=== PATIENT | male | born 1950 | race Caucasian/White ===

== ENCOUNTER 2019-07-03 16:35 | Emergency (ER) | payer MEDICARE, OTHER ==
[2019-07-03] MEDS ORDERED: Ketorolac 30 MG/ML SDV IM ONE (16:59)
[2019-07-03 17:01] VITALS: BP 130/99; PULSE 100
--- NOTE | 2019-07-03 17:10 | EDM.PDOC ---
ED HPI GENERAL MEDICAL PROBLEM - General Chief Complaint: General Stated Complaint: rib pain post fall Time Seen by Provider: 07/03/19 16:45 Source of Information: Reports: Patient History Limitations: Reports: No Limitations - History of Present Illness INITIAL COMMENTS - FREE TEXT/NARRATIVE: Patient comes into the emergency department with complaints of left rib discomfort post fall. Patient was diagnosed with a rib fracture in the clinic 2 days ago and was given Tylenol# 3 for pain and discomfort. Patient did try to call the clinic today to let them know that he was still having a significant amount of pain and discomfort and severe muscle spasms. They did not get back to him in a timely manner. He did call right before the clinic closed and they suggested that he report emergency Department further evaluation. Patient denies feeling short of breath or having any chest pain. He states that the muscle spasms/pain come and go and is significant, tender over the left lower portion of his anterior chest, and reproducible. Associated hurts when he takes a deep breath. He states his rib fractures were related to a fall while he was walking his dog on -his dog pulled on the leash and he slipped on the ice at the same time resulting in the fall on the left side. He denies ever hitting his head or hurting any other limb or extremity. Onset: Gradual Duration: Recurring Location: Reports: Chest Quality: Reports: Throbbing Severity: Moderate Improves with: Reports: Immobilization, Rest Worsens with: Reports: Movement Context: Reports: Activity Associated Symptoms: Reports: No Other Symptoms Treatments INSTRUCTOR TAP DANCING: Reports: Acetaminophen Left Thoracic Pain Score (Numeric/FACES): 10 - Related Data Allergies Allergy/AdvReac Type Severity Reaction Status Date / Time No Known Drug Allergies Allergy Other Verified 07/03/19 16:51 smoke Allergy Other Uncoded 07/03/19 16:51 Home Meds: Home Meds Allopurinol [Zyloprim] 150 mg PO DAILY 02/16/16 [History] Acetaminophen with Codeine [Acetaminophen-Cod #3] 2 each PO Q6H 07/03/19 [ History] Diazepam [Valium] 2 mg PO QID PRN #15 tablet 07/03/19 [Rx] Past Medical History HEENT History: Reports: Cataract, Other (See Below) Other HEENT History: FX NOSE Cardiovascular History: Reports: Hypertension Other Cardiovascular History: Does not take BP medicine at this time. Gastrointestinal History: Reports: Colon Polyp, Hemorrhoids, Other (See Below) Other Gastrointestinal History: fm hx colon ca Genitourinary History: Reports: Chronic Renal Insuffiency, Other (See Below) Other Genitourinary History: ED Musculoskeletal History: Reports: Arthritis, Back Pain, Chronic, Gout, Osteoarthritis Neurological History: Reports: Migraines Psychiatric History: Reports: Depression Endocrine/Metabolic History: Reports: None Hematologic History: Immunologic History: Reports: None Oncologic (Cancer) History: Reports: None Dermatologic History: Reports: None - Infectious Disease History Infectious Disease History: Reports: None - Past Surgical History HEENT Surgical History: Reports: Cataract Surgery Neurological Surgical History: Reports: Laminectomy, Lumbar Spine Musculoskeletal Surgical History: Reports: Carpal Tunnel, Hip Replacement, Knee Replacement, Other (See Below) Social & Family History - Family History Neurological: Reports: CVA ED ROS GENERAL - Review of Systems Review Of Systems: Comprehensive ROS is negative, except as noted in HPI. Constitutional: Reports: No Symptoms HEENT: Reports: No Symptoms Respiratory: Reports: No Symptoms Cardiovascular: Reports: No Symptoms Endocrine: Reports: No Symptoms GI/Abdominal: Reports: No Symptoms : Reports: No Symptoms Musculoskeletal: Reports: No Symptoms Skin: Reports: No Symptoms Neurological: Reports: No Symptoms ED EXAM, GENERAL - Physical Exam Exam: See Below Exam Limited By: No Limitations General Appearance: Alert, WD/WN, No Apparent Distress Head: Atraumatic, Normocephalic Neck: Normal Inspection, Supple, Non-Tender, Full Range of Motion Respiratory/Chest: No Respiratory Distress, Lungs Clear, Normal Breath Sounds, No Accessory Muscle Use, Chest Non-Tender Cardiovascular: Normal Peripheral Pulses, Regular Rate, Rhythm, No Edema, No Gallop, No JVD, No Murmur, No Rub, Other (chest tenderness, stiffening of muscle ) GI/Abdominal: Normal Bowel Sounds, Soft, Non-Tender Back Exam: Normal Inspection, Full Range of Motion, NT Extremities: Normal Inspection, Normal Range of Motion, Non-Tender, Normal Capillary Refill, No Pedal Edema Neurological: Alert, Oriented, CN II-XII Intact, Normal Cognition, Normal Gait, No Motor/Sensory Deficits Psychiatric: Normal Affect, Normal Mood Skin Exam: Warm, Dry, Intact, Normal Color, No Rash Course - Vital Signs Last Recorded V/S: Last Vital Signs Temp 36.8 C 07/03/19 16:55 Pulse 100 07/03/19 16:55 Resp 16 07/03/19 16:55 BP 130/99 H 07/03/19 16:55 Pulse Ox - Orders/Labs/Meds Meds: Medications Discontinued Medications Generic Name Dose Route Start Last Admin Trade Name Jasonq PRN Reason Stop Dose Admin Diazepam 5 mg 07/03/19 16:59 Valium IM 07/03/19 17:00 ONETIME ONE Ketorolac Tromethamine 30 mg 07/03/19 16:59 Toradol IM 07/03/19 17:00 ONETIME ONE Departure - Departure Time of Disposition: 17:25 Disposition: Home, Self-Care 01 Condition: Good Clinical Impression: Rib fracture Qualifiers: Encounter type: subsequent encounter Rib fracture type: single rib Fracture type: closed Laterality: left Fracture healing: with routine healing Qualified Code(s): S22.32XD - Fracture of one rib, left side, subsequent encounter for fracture with routine healing - Discharge Information *PRESCRIPTION DRUG MONITORING PROGRAM REVIEWED*: Not Applicable *COPY OF PRESCRIPTION DRUG MONITORING REPORT IN PATIENT ASHLEY: Not Applicable Prescriptions: Diazepam [Valium] 2 mg PO QID PRN #15 tablet PRN Reason: Spasms Instructions: Rib Fracture, Gqzl-rw-[id number], Diazepam tablets, RICE for Routine Care of Injuries, Muscle Cramps and Spasms, Nrel-nw-Wlrr Additional Instructions: 1. rest 2. increase your water intake 3. Can take over the counter medications to help with constipation concerns 4. Do not drive or operate any heavy machinery while under the use of controlled substances including Valium and the Tylenol #3 (that you were provided from the clinic) for it can alter your response and mentation 5. Activity and diet as tolerated 6. Splint the affected area when coughing or needing to take a deep breath to help reduce the pain and discomfort 7. Can take wzys-doe-rvryqqu ibuprofen or Tylenol as needed help with pain and discomfort. Limit the amount of over the counter Tylenol take if you are taking the Tylenol #3. 8. Follow-up in the clinic if not better early next week or return to the emergency department if symptoms worsen or progress 9. Call with any questions or concerns Sepsis Event Note - Evaluation Sepsis Screening Result: No Definite Risk - Focused Exam Vital Signs: Vital Signs Temp Pulse Resp BP 07/03/19 16:55 36.8 C 100 16 130/99 H Date Exam was Performed: 07/03/19 Time Exam was Performed: 17:03 - Assessment/Plan Assessment:: 1. muscle spasm 2. Rib fracture Plan: 1. Valium 5 mg IM given for severe muscle spasm 2. Toradol 30 mg IM injection given the ER for pain 3. Prescription for Valium 2 mg 3 times a day PRN given to the patient. Patient is advised regarding the use of controlled substances and that delayed human response and increased falls. Patient is also advised to refrain from using any alcohol or other illicit drugs all taking this. He is also advised not to drive or operate heavy machinery while using this medication or any other controlled medications. 4. Patient is encouraged to follow up with his primary care provider early next week if not better. 5. Education given regarding activity, diet, constipation, ythu-yql-nkkesjr medication modalities, splinting, and follow-up care 6. All questions and concerns were addressed prior to patient's discharge
== END 2019-07-03 17:35 | disposition home or self-care (01) ==
LOC: VM.ED 16:35
DX: S22.32XD Fracture of one rib, left side, subsequent encounter for fracture with routine healing (principal); I12.9 Hypertensive chronic kidney disease with stage 1 through stage 4 chronic kidney disease, or unspecified chronic kidney disease; N18.9 Chronic kidney disease, unspecified; F32.9 Major depressive disorder, single episode, unspecified; Z79.899 Other long term (current) drug therapy; Z91.09 Other allergy status, other than to drugs and biological substances; W19.XXXD Unspecified fall, subsequent encounter
CPT/HCPCS: 96372; 99283; J1885; J3360

== ENCOUNTER 2021-01-12 10:14 | Day surgery (SDC) | payer MEDICARE ==
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
[2021-01-12] MEDS: Lactated Ringers 1,000 ML IV SCH (11:00)
[2021-01-12] MEDS ORDERED: Propofol 200 MG/20 ML SDV ONE ×2 (11:50→12:47)
[2021-01-12] MEDS ORDERED: fentaNYL 100 MCG/2 ML SDV ONE (11:50)
[2021-01-12 13:34] VITALS: BP 121/73; PULSE 83
--- NOTE | 2021-01-13 08:09 | OR ---
DATE OF SURGERY: 01/12/2021. REFERRING PROVIDER: SAHRA Barcenas PRE-OPERATIVE DIAGNOSES: 1. History of colon polyps. Last colonoscopy in 08/2015 revealed 2 polyps. 2. Positive family history of colon cancer in father at around age 80. POST-OPERATIVE DIAGNOSES: 1. Total of 2 polyps removed today. a. 8 mm polyp at 70 cm, removed using hot snare. b. 2 mm polyp at 65 cm, removed using cold forceps. 2. Ymdl-gs-mgjdmzgk left-sided diverticulosis. 3. Mild internal hemorrhoids. 4. Normal-appearing distal ileum. PROCEDURE: Colonoscopy with polypectomy x2 (1 using hot snare and 1 using cold forceps). SURGEON: Luciano Downing M.D. ANESTHESIA: Monitored anesthesia care. BOWEL PREP: Fair, but did require moderate irrigation and suctioning. Guillermo is a 70-year-old male who was brought to the endoscopy suite after discussing risks and benefits of the procedure. Informed consent was obtained for conscious sedation and colonoscopy with or without biopsy and/or polypectomy. We also discussed possibility of missed lesions. Pre-procedure exam was unremarkable. IV, oxygen, and monitors were placed. The patient was placed in the left lateral decubitus position. Sedation was administered and a digital rectal exam was performed and unremarkable. Colonoscope was passed into the rectum and slowly advanced all the way to the cecum. Cecum was viewed and photographed. Ileocecal valve was intubated and distal ileum was normal in appearance. The colonoscope was slowly withdrawn and the mucosa was closed observed in a direct circumferential manner. The ascending colon revealed 8 mm sessile polyp at 70 cm, removed using hot snare. The transverse colon was remarkable for a 2 mm polyp at 65 cm, removed using cold forceps. The descending and sigmoid colon were remarkable for qxzv-gv-bzneyqxa diverticulosis. Retroflexion was performed and rectal mucosa was remarkable for some mild internal hemorrhoids, not acutely inflamed. Scope was removed. The patient tolerated the procedure well. The patient was monitored until that baseline status. Discharge instructions were reviewed and the patient was discharged in good condition. COMPLICATIONS: None. TOTAL TIME: 29 minutes. ESTIMATED BLOOD LOSS: Less than 1 mL. RECOMMENDATIONS/FOLLOW-UP: We will await results of path report to determine ideal followup interval. I would like to kindly thank Sonny Huber for this referral. DMB: 01/12/2021 13:50:07 MODL: 01/12/2021 15:07:12 /[id number]
== END 2021-01-12 14:25 | disposition home or self-care (01) ==
LOC: VM.SDS 10:14
PROVIDERS: ATTEND Family Medicine
DX: Z12.11 Encounter for screening for malignant neoplasm of colon (principal); D12.6 Benign neoplasm of colon, unspecified; K57.30 Diverticulosis of large intestine without perforation or abscess without bleeding; K64.8 Other hemorrhoids; I12.9 Hypertensive chronic kidney disease with stage 1 through stage 4 chronic kidney disease, or unspecified chronic kidney disease; N18.30 Chronic kidney disease, stage 3 unspecified; M10.9 Gout, unspecified; Z86.010 Personal history of colon polyps; Z80.0 Family history of malignant neoplasm of digestive organs
CPT/HCPCS: 00811; J2704; J3010; J7120

== ENCOUNTER 2025-05-08 12:59 | Emergency (ER) | payer MEDICARE ==
[2025-05-08 13:19] LABS: BASOPHILS ABSOLUTE AUTO 0.0 x10^3/uL (0.0-0.2); BASOPHILS PERCENT AUTO 0.6 % (0.2-1.2); EOSINOPHILS ABSOLUTE AUTO 0.2 x10^3/uL (0.0-0.5); EOSINOPHILS PERCENT AUTO 3.3 % (0.0-4.0); IMMATURE GRAN ABSOLUTE AUTO 0.03 x10^3/uL (0.00-0.07); IMMATURE GRAN PERCENT AUTO 0.40 % (0.00-0.43); LYMPHOCYTES ABSOLUTE AUTO 2.0 x10^3/uL (1.0-4.8); LYMPHOCYTES PERCENT AUTO 28.4 % (25.0-50.0); MONOCYTES ABSOLUTE AUTO 0.6 x10^3/uL (0.0-0.8); MONOCYTES PERCENT AUTO 8.6 % (2.0-11.0); NEUTROPHILS ABSOLUTE AUTO 4.1 x10^3/uL (1.8-7.7); NEUTROPHILS PERCENT AUTO 58.7 % (50.0-80.0); PLATELET COUNT,PLT 239 x10^3/uL (130-400); RED BLOOD CELL COUNT 4.49 x10^6/uL (4.5-6.0); WHITE BLOOD CELL COUNT,WBC 7.0 x10^3/uL (4.0-10.0)
[2025-05-08 13:35] LABS: A/G RATIO 1.00; ALANINE AMINOTRANSFERASE,ALT 19 U/L (16-63); ASPARTATE AMNIOTRANSFERASE,AST 23 U/L (15-37); BILIRUBIN TOTAL 0.4 mg/dL (0.2-1.0); BLOOD UREA NITROGEN,BUN 32 mg/dL (7-18); CARBON DIOXIDE,CO2 27 mmol/L (21-32); CHLORIDE,CL 106 mmol/L (98-107); CREATININE 2.0 mg/dL (0.70-1.30); GLUCOSE RANDOM 97 mg/dL (70-99); POTASSIUM,K 4.8 mmol/L (3.5-5.1); PROTEIN TOTAL,TP 7.0 g/dL (6.4-8.2); SODIUM,NA 141 mmol/L (136-145)
[2025-05-08 13:36] LABS: ESTIMATED GFR 34 mL/min (>=60)
[2025-05-08 16:26] VITALS: BP 126/83; PULSE 67
== END 2025-05-08 15:36 | disposition home or self-care (01) ==
LOC: VM.ED 12:59
DX: E86.0 Dehydration (principal); I12.9 Hypertensive chronic kidney disease with stage 1 through stage 4 chronic kidney disease, or unspecified chronic kidney disease; N18.9 Chronic kidney disease, unspecified; M19.90 Unspecified osteoarthritis, unspecified site; Z88.8 Allergy status to other drugs, medicaments and biological substances
CPT/HCPCS: 36415; 80053; 84484; 85025; 93005; 93010; 96360; 99284; 99284-25; J7030